=== PATIENT | female | born 2000 | race Hispanic/Latino ===

== ENCOUNTER 2022-04-14 00:13 | Emergency (ER) | payer OTHER, SELFPAY ==
[2022-04-14 00:52] LABS: #Basophils 0.1 thou/uL (0.0-0.2); #Eosinphils 0.1 thou/uL (0.0-0.7); #Lymphocytes 2.1 thou/uL (1.20-3.40); #Monocytes 0.7 thou/uL (0.11-0.59); %Basophils 0.6 % (0.0-1.0); %Eosinophils 1.5 % (0.0-10.0); %Lymphocytes 23.3 % (28.0-48.0); %Monocytes 7.3 % (0.0-4.0); %Neutrophils 67.3 % (31.0-61.0); Hemoglobin 13.6 g/dL (12.0-16.0); Mean Corpuscular HGB CONC 33.9 g/dL (32.0-36.0); Mean Corpuscular Hemoglobin 31.3 pg (25.0-35.0); Mean Corpuscular Volume 92.2 fl (78.0-98.0); Mean Platelet Volume 8.4 fL (7.4-10.4); Platelet Count 257 10x3/uL (130-400); RBC Distribution Width 11.9 % (11.5-14.5); Red Blood Cell (RBC) Count 4.34 mill/uL (4.00-5.20); White Blood Cell (WBC) Count 8.9 10x3/uL (4.8-10.8)
[2022-04-14 00:53] LABS: BHCG - Serum POSITIVE (NEGATIVE); Pregs Control Background? CLEAR/WHITE (CLR/WHITE); Pregs Control Bar Appear? YES (CONTROL BAR)
[2022-04-14 03:21] LABS: Bacteria/HPF None Seen HPF (None Seen); Bilirubin Negative (Negative); Blood, Urine 3+ (Negative); Clarity Turbid (Clear); Glucose, Urine (Dipstick) Normal (Negative); Ketone, Urine Trace mg/dL (Negative); Leukocyte 250 Leu/uL (Negative); Nitrite Negative (Negative); Protein, Urine (Dipstick) 50 mg/dL (Neg-Trace); RBC/HPF Greater than 50 HPF (0-3); Specific Gravity, Urine 1.022 (1.002-1.036); Squamous Epithelial 0-3 HPF (0-3); Urobilinogen Normal mg/dL (Less than 2); WBC/HPF Greater than 50 HPF (0-3)
[2022-04-14 13:36] LABS: Chlam.trachomatis by PCR,Urine DETECTED (NotDetected)
== END 2022-04-14 03:52 | disposition home or self-care (01) ==
LOC: ERS 00:13
DX: O20.0 Threatened abortion (principal); N39.0 Urinary tract infection, site not specified
CPT/HCPCS: 36415; 76856; 81003; 81015; 84702; 84703; 85025; 86900; 86901; 87480; 87491; 87510; 87591; 87660; 88305

== ENCOUNTER 2022-06-25 15:48 | Emergency (ER) | payer OTHER ==
[2022-06-25] MEDS ORDERED: Acetaminophen 500 MG TAB ONE (15:54)
[2022-06-25] MEDS ORDERED: Acetaminophen 325 MG/10.15 ML UDCUP ONE (15:58)
[2022-06-25] MEDS ORDERED: Acetaminophen 650 MG/20.3 ML UDCUP ONE (15:58)
[2022-06-25] MEDS ORDERED: Ketorolac Tromethamine 30 MG/ML VIAL ONE (16:15)
[2022-06-25 16:33] LABS: Hemoglobin 13.1 g/dL (12.0-16.0); Mean Corpuscular HGB CONC 33.9 g/dL (32.0-36.0); Mean Corpuscular Hemoglobin 29.9 pg (25.0-35.0); Mean Corpuscular Volume 88.2 fl (78.0-98.0); Mean Platelet Volume 8.8 fL (7.4-10.4); Platelet Count 201 10x3/uL (130-400); RBC Distribution Width 11.7 % (11.5-14.5); Red Blood Cell (RBC) Count 4.39 mill/uL (4.00-5.20); White Blood Cell (WBC) Count 13.5 10x3/uL (4.8-10.8)
[2022-06-25 16:44] LABS: ALT (SGPT) 33 U/L (8-55); AST (SGOT) 31 U/L (5-34); Albumin 4.2 g/dL (3.5-5.0); Alkaline Phosphatase 100 U/L (40-100); Anion Gap 15 mmol/L (10-20); BUN (Urea Nitrogen) 6 mg/dL (7.0-18.7); Bilirubin, Total 0.8 mg/dL (0.2-1.2); Calc. Creatinine Clearance 0 mL/min (70-130); Calcium 9.2 mg/dL (7.8-10.44); Carbon Dioxide 20 mmol/L (22-29); Chloride 100 mmol/L (98-107); Estimated GFR 107; Globulin 3.6 g/dL (2.4-3.5); Glucose 132 mg/dL (70-105); Potassium 3.1 mmol/L (3.5-5.1); Protein, Total 7.8 g/dL (6.0-8.3); Sodium 132 mmol/L (136-145)
[2022-06-25 16:50] LABS: Band 10 % (5-11); Lymphocytes 7 % (28-48); MDiff Complete? YES; Monocytes 11 % (0-4); Neutrophil 70 % (31-61); Platelet Morphology Comment Appears Adequate; RBC Morphology Normal; Reactive Lymphocytes 1 % (0-10)
[2022-06-25 17:34] LABS: BHCG - Serum Negative (NEGATIVE); Pregs Control Background? CLEAR/WHITE (CLR/WHITE); Pregs Control Bar Appear? YES (CONTROL BAR)
[2022-06-25] MEDS ORDERED: Potassium Chloride 20 MEQ TAB ONE (18:17)
[2022-06-25] MEDS ORDERED: Ondansetron ODT 4 MG TAB ONE (18:17)
[2022-06-25] MEDS ORDERED: Cefepime 2 GM VIAL ONE (18:27)
[2022-06-25 19:56] LABS: Bacteria/HPF 4+ HPF (None Seen); Bilirubin Negative (Negative); Blood, Urine 2+ (Negative); Clarity Turbid (Clear); Glucose, Urine (Dipstick) Normal (Negative); Ketone, Urine Negative (Negative); Leukocyte 500 Leu/uL (Negative); Nitrite 2+ (Negative); Protein, Urine (Dipstick) 30 mg/dL (Neg-Trace); RBC/HPF 0-3 HPF (0-3); Specific Gravity, Urine 1.006 (1.002-1.036); Transitional Epithelial 0-3 HPF (None Seen); Urobilinogen Normal mg/dL (Less than 2); WBC/HPF Greater than 50 HPF (0-3)
[2022-06-25 20:31] LABS: SARS-CoV-2 NAA Rapid Test Not Detected (NotDetected)
== END 2022-06-25 20:24 | disposition home or self-care (01) ==
LOC: ERS 15:48
DX: N12 Tubulo-interstitial nephritis, not specified as acute or chronic (principal); N13.6 Pyonephrosis; Z20.822 Contact with and (suspected) exposure to COVID-19
CPT/HCPCS: 36415; 74176; 80053; 81003; 81015; 83605; 84703; 85025; 87040; 87077; 87086; 87186; 93005; 96374; 96375; J0692; J1885; Q0162

== ENCOUNTER 2022-11-15 17:05 | Emergency (ER) | payer OTHER ==
[2022-11-15 18:34] LABS: Bilirubin Negative (Negative); Blood, Urine 3+ (Negative); CAUTI Indications for Culture Dysuria,urgency,freq; Clarity Extra Turbid (Clear); Glucose, Urine (Dipstick) Normal (Negative); Ketone, Urine 20 mg/dL (Negative); Leukocyte 500 Leu/uL (Negative); Nitrite Negative (Negative); Protein, Urine (Dipstick) 300 mg/dL (Neg-Trace); Specific Gravity, Urine 1.023 (1.002-1.036); Squamous Epithelial None Seen HPF (0-3); WBC/HPF Greater than 50 HPF (0-3)
[2022-11-15 18:37] LABS: Bacteria/HPF 1+ HPF (None Seen)
[2022-11-15 18:38] LABS: Urine Culture Reflex Yes Yes
== END 2022-11-15 19:04 | disposition home or self-care (01) ==
LOC: ERS 17:05
DX: O23.40 Unspecified infection of urinary tract in pregnancy, unspecified trimester (principal); N39.0 Urinary tract infection, site not specified; Z3A.00 Weeks of gestation of pregnancy not specified
CPT/HCPCS: 81001; 87086; 99283